=== PATIENT | female | born 1980 | race Caucasian/White ===

== ENCOUNTER 2017-04-09 21:30 | Emergency (ER) | payer MEDICAID ==
[2017-04-10 00:44] VITALS: BP 123/78
== END 2017-04-10 00:44 | disposition home or self-care (01) ==
LOC: ED 21:30
DX: R11.2 Nausea with vomiting, unspecified (principal); R19.7 Diarrhea, unspecified; R50.9 Fever, unspecified; M79.1 Myalgia; R53.1 Weakness; R51 Headache
CPT/HCPCS: Q0162